=== PATIENT | female | born 1970 | race Caucasian/White ===

== ENCOUNTER → 2018-06-10 09:12 | Day surgery (SDC) | payer BC ==
[~2018-06-10 09:12] MED LIST: Acetaminophen IV 1GM/100ML * 1,000 MG/100 ML VIAL IVPB ONE; Acetaminophen IV 1GM/100ML * 100 ML ONE; Buffered Lidocaine 1% SYRIN* 1 ML/SYRINGE INTRADERM ONE; Bupivacaine 0.25% SDV PF* 10 ML VIAL INJ ONE; Bupivacaine 0.5% W/EPI SDV* 30 ML VIAL ONE; Dexamethasone IV* 4 MG/ML 1 ML (4 MG) ONE; DiMENhydriNATE IV* 50 MG/ML VIAL IV PUSH PRN; DiMENhydriNATE IV* 50 MG/ML VIAL ONE; Famotidine IV* 10 MG/ML 2 ML (20 mg) IV ONE; Famotidine IV* 10 MG/ML 2 ML (20 mg) ONE; HYDROmorphone INJ1* 1 MG/ML SYRINGE IV PRN; HYDROmorphone INJ1* 1 MG/ML SYRINGE ONE; KETAMINE HCL* 50 MG/ML 10 ML VIAL ONE; Ketorolac INJ* 30 MG/ML 1 ML VIAL ONE; Lactated Ringers 1000 ML Bag* 1,000 ML IV SCH; Lidocaine 2% PF * 5 ML VIAL ONE; Lidocaine 2% PF* 10 ML AMP ONE; Midazolam* 1 MG/ML 5 ML VIAL (5 MG) ONE; Naloxone* 0.4 MG/ML 1 ML VIAL IV PRN; Ondansetron INJ* 2 MG/ML VIAL ONE; Propofol* 10 MG/ML 20 ML BTL ONE; Ropivacaine* 2 MG/ML 20 ML VIAL (0.2%) ONE; Scopolamine 1.5 mg* PATCH ONE; Scopolamine 1.5 mg* PATCH TRANSDERM SCH; ceFAZolin 2 GM PREMIX in ORs 2 GM/50 ML BAG IVPB ONE; fentaNYL* 50 MCG/ML 2 ML VIAL (100 MCG VIAL) ONE; oxyCODONE TAB* 5 MG TAB PO PRN
[2018-06-10 15:37] VITALS: BP 116/74
--- NOTE | 2018-06-10 22:50 | OP ---
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 OPERATIVE PROCEDURE: Lapidus procedure of the great toe and first TMT joint, shortening osteotomy of the second metatarsal and second PIP resection arthroplasty. DESCRIPTION OF PROCEDURE: The patient was taken to the operating room where a longitudinal incision was made over the dorsomedial aspect of the first TMT joint. We took down the capsule with a 15 blade and then made an osteotomy cut through the first TMT joint using the microsagittal saw. We were able to dorsiflex and abduct the base of the first metatarsal. This was fixed with paired mini-frag plates of the Arthrex 2.4 mm tray. We then made a longitudinal incision in the first webspace dorsally, releasing the adductor tendon away from the lateral border of the fibular sesamoid as well as the capsulotomy longitudinally over the dorsum of the sesamoid. Through that same incision, we exposed the dorsal aspect of the second metatarsal and the microsagittal saw was used to divide the metatarsal distal dorsal to proximal plantar. We removed a second cut about 2 to 3 mm wedge of bone and then translated the met head proximally. This was pinned with a 12 mm twist-off screw. Through the transverse elliptical incision over the dorsum of the PIP joint of the second toe, we resected the condyles of the joint and pinned this toe longitudinally with a 0.054 C-wire. We did not cross the MTP joint. We then made a longitudinal incision over the medial eminence. This was a longitudinal split of the capsule. We removed the medial eminence with a microsagittal saw and then imbricated the medial capsule with 0 Vicryl interrupted sutures. X-ray then intraoperatively showed satisfactory position of both joints as well as the hardware. We irrigated all 3 wounds closing with Vicryl, nylon sutures and a compression dressing, plaster splint. [id number]/[facility] #: [id number] [facility]OS[facility]ITALErnestina
== END | disposition home or self-care (01) ==
LOC: OR 09:12
PROVIDERS: ATTEND Orthopaedic Surgery
DX: Q66.7 Congenital pes cavus (principal); M20.12 Hallux valgus (acquired), left foot; M20.42 Other hammer toe(s) (acquired), left foot; M77.42 Metatarsalgia, left foot
CPT/HCPCS: 76000; 88304; A9270-GY; C1713; J0690; J1100; J1170; J1240; J1885; J2001; J2250; J2405; J2704; J2795; J3010; J3490